=== PATIENT | male | born 1950 | race Caucasian/White ===

== ENCOUNTER 2017-08-29 17:30 | Emergency (ER) | payer SELFPAY ==
[~2017-08-29] VITALS: Ht 175.3 cm; Wt 97.0 kg
[~2017-08-29 17:30] MED LIST: HYDR-3513 PO; SULF1TAB48 PO
[2017-08-29] MEDS ORDERED: SODIUM CHLORIDE 0.9% 1,000 ML IV ONE (18:22)
[2017-08-29] MEDS ORDERED: KETOROLAC 30MG/ML VIAL IV STA (18:22)
[2017-08-29 18:59] LABS: CLARITY URINE TURBID (CLEAR); COLOR URINE DARK YELLOW (YELLOW); GLUCOSE URINE NEGATIVE (NEGATIVE); KETONES URINE NEGATIVE (NEGATIVE); LEUKOCYTE ESTERASE URINE 3+ (NEGATIVE); NITRITE URINE NEGATIVE (NEGATIVE); OCCULT BLOOD URINE TRACE (NEGATIVE); PH URINE 7.5 (4.5-8.0); PROTEIN URINE NEGATIVE (NEGATIVE); SPECIFIC GRAVITY URINE 1.021 (1.005-1.030); UROBILINOGEN URINE >8.0 E.U./dL (0.2-1.0)
[2017-08-29 19:00] LABS: BASOPHILS % 0.7 % (0.0-2.0); EOSINOPHILS % 4.2 % (0.0-5.0); HEMOGLOBIN. 14.1 g/dL (14.0-18.0); LYMPHOCYTES % 20.8 % (20.0-50.0); MEAN CORPUSCULAR HEMOGLOBIN 32.4 pg (28.0-32.0); MEAN CORPUSCULAR VOLUME 94.2 fL (80.0-94.0); MEAN PLATELET VOLUME 7.7 fl (7.4-10.4); MONOCYTES % 12.9 % (2.0-8.0); NEUTROPHILS % 61.4 % (40.0-76.0); PLATELET 91 x1000/uL (130-400); RED BLOOD CELL COUNT 4.35 mill/uL (4.7-6.1); RED CELL DISTRIBUTION WIDTH 14.3 % (11.6-14.6)
[2017-08-29 19:07] LABS: INR 1.2; PROTHROMBIN TIME 12.1 sec (9.4-11.6)
[2017-08-29 19:16] LABS: CARBON DIOXIDE 27 mEq/L (21-32); CHLORIDE 105 mEq/L (98-107)
[2017-08-29] MEDS ORDERED: LEVOFLOXACIN 750MG PREMIX 150 ML IV ONE (19:30)
[2017-08-29 21:45] VITALS: BP 126/75
== END 2017-08-29 22:02 | disposition home or self-care (01) ==
LOC: ER 17:30
DX: N49.2 Inflammatory disorders of scrotum (principal); L03.818 Cellulitis of other sites; N30.00 Acute cystitis without hematuria
CPT/HCPCS: 36415; 80053; 81001; 83605; 85025; 85610; 87040; 96365; 96366; 96375; 99285; J1885; J1956; J7030; Z7610

== ENCOUNTER 2018-09-26 11:31 | Inpatient (IN) | payer MEDICAID ==
[~2018-09-26] VITALS: Ht 175.3 cm; Wt 117.7 kg
[2018-09-26] MEDS ORDERED: SODIUM CHLORIDE 0.9% 1,000 ML IV ONE (11:44)
[2018-09-26 12:29] LABS: BASOPHILS % 0.4 % (0.0-2.0); EOSINOPHILS % 4.1 % (0.0-5.0); HEMATOCRIT. 42.3 % (42.0-52.0); HEMOGLOBIN. 14.7 g/dL (14.0-18.0); LYMPHOCYTES % 34.1 % (20.0-50.0); MEAN PLATELET VOLUME 8.6 fl (7.4-10.4); MONOCYTES % 11.6 % (2.0-8.0); NEUTROPHILS % 49.8 % (40.0-76.0); PLATELET 58 x1000/uL (130-400); RED BLOOD CELL COUNT 4.31 mill/uL (4.7-6.1); RED CELL DISTRIBUTION WIDTH 15.5 % (11.6-14.6)
[2018-09-26 12:38] LABS: INR 1.3; PROTHROMBIN TIME 12.6 sec (9.1-11.1)
[2018-09-26 12:40] LABS: CHLORIDE 107 mEq/L (98-107)
[2018-09-26 13:20] LABS: CLARITY URINE CLEAR (CLEAR); COLOR URINE DARK YELLOW (YELLOW); KETONES URINE NEGATIVE (NEGATIVE); LEUKOCYTE ESTERASE URINE TRACE (NEGATIVE); NITRITE URINE NEGATIVE (NEGATIVE); OCCULT BLOOD URINE NEGATIVE (NEGATIVE); PROTEIN URINE NEGATIVE (NEGATIVE); SPECIFIC GRAVITY URINE 1.018 (1.005-1.030); UROBILINOGEN URINE >8.0 E.U./dL (0.2-1.0)
[2018-09-26 15:00] LABS: AMMONIA 165 uMol/L (<32)
[2018-09-26] MEDS ORDERED: LACTULOSE 20G/30ML UDC PO ONE (15:30)
[2018-09-26] MEDS ORDERED: ASPIRIN 81MG TABLET PO ONE (15:30)
[2018-09-26 22:45] VITALS: BP 123/72
[2018-09-26 23:00] VITALS: BP 123/72
[2018-09-27 04:00] VITALS: BP 132/75
[2018-09-27] MEDS ORDERED: ONDANSETRON HCL 4MG/2ML INJ IV PRN (06:30)
[2018-09-27] MEDS ORDERED: ACETAMINOPHEN 325MG TABLET PO PRN (06:30)
[2018-09-27] MEDS ORDERED: CLONIDINE 0.1MG TABLET PO PRN (06:30)
[2018-09-27 08:00] VITALS: BP 110/60
[2018-09-27] MEDS: AMLODIPINE 10MG TABLET PO SCH (08:56)
[2018-09-27] MEDS: LACTULOSE 20G/30ML UDC PO SCH ×5 (08:56→22:22)
[2018-09-27 09:07] LABS: AMMONIA 162 uMol/L (<32)
[2018-09-27 12:00] VITALS: BP 110/60
[2018-09-27 16:00] VITALS: BP 124/68
[2018-09-27 20:00] VITALS: BP 116/65
[2018-09-28] VITALS: BP 114/61
[2018-09-28 04:00] VITALS: BP 121/71
[2018-09-28] MEDS: LACTULOSE 20G/30ML UDC PO SCH ×3 (04:57→22:56)
[2018-09-28 06:20] LABS: AMMONIA 162 uMol/L (<32)
[2018-09-28 06:30] LABS: BASOPHILS % 0.5 % (0.0-2.0); HEMATOCRIT. 40.1 % (42.0-52.0); HEMOGLOBIN. 13.9 g/dL (14.0-18.0); LYMPHOCYTES % 32.7 % (20.0-50.0); MEAN CORPUSCULAR VOLUME 97.9 fL (80.0-94.0); MEAN PLATELET VOLUME 8.6 fl (7.4-10.4); MONOCYTES % 12.9 % (2.0-8.0); NEUTROPHILS % 49.9 % (40.0-76.0); RED BLOOD CELL COUNT 4.09 mill/uL (4.7-6.1); RED CELL DISTRIBUTION WIDTH 15.3 % (11.6-14.6)
[2018-09-28 06:34] LABS: CHLORIDE 106 mEq/L (98-107)
[2018-09-28 08:00] VITALS: BP 122/65
[2018-09-28 08:15] LABS: PLATELET 50 x1000/uL (130-400)
[2018-09-28 08:23] LABS: PLATELET ESTIMATE MARKEDLY DECREASED
[2018-09-28] MEDS: AMLODIPINE 10MG TABLET PO SCH (08:33)
[2018-09-28 12:20] VITALS: BP 102/65
[2018-09-28 16:00] VITALS: BP 106/61
[2018-09-28 20:00] VITALS: BP 106/54
[2018-09-29] VITALS: BP 112/58
[2018-09-29 04:00] VITALS: BP 128/79
[2018-09-29] MEDS: LACTULOSE 20G/30ML UDC PO SCH ×3 (06:19→21:04)
[2018-09-29 07:31] LABS: BASOPHILS % 0.5 % (0.0-2.0); HEMATOCRIT. 39.7 % (42.0-52.0); HEMOGLOBIN. 13.8 g/dL (14.0-18.0); MEAN CORPUSCULAR HEMOGLOBIN 34.1 pg (28.0-32.0); MEAN CORPUSCULAR VOLUME 97.7 fL (80.0-94.0); MEAN PLATELET VOLUME 8.7 fl (7.4-10.4); MONOCYTES % 13.4 % (2.0-8.0); NEUTROPHILS % 51.1 % (40.0-76.0); PLATELET 54 x1000/uL (130-400); RED BLOOD CELL COUNT 4.06 mill/uL (4.7-6.1); RED CELL DISTRIBUTION WIDTH 15.1 % (11.6-14.6)
[2018-09-29 08:00] VITALS: BP 119/65
[2018-09-29 08:00] LABS: AMMONIA 157 uMol/L (<32)
[2018-09-29 08:37] LABS: CHLORIDE 108 mEq/L (98-107)
[2018-09-29] MEDS: AMLODIPINE 10MG TABLET PO SCH ×2 (08:57→09:48)
[2018-09-29 12:00] VITALS: BP 108/61
[2018-09-29 16:29] VITALS: BP 101/59
[2018-09-29 20:27] VITALS: BP 117/66
[2018-09-30 00:49] VITALS: BP 123/60
[2018-09-30 04:00] VITALS: BP 108/62
[2018-09-30] MEDS: LACTULOSE 20G/30ML UDC PO SCH (05:27)
[2018-09-30 08:30] VITALS: BP 121/67
[2018-09-30] MEDS: AMLODIPINE 10MG TABLET PO SCH (09:11)
[2018-09-30 09:35] LABS: AMMONIA 86 uMol/L (<32)
[2018-09-30 11:31] VITALS: BP 123/60
== END 2018-09-30 14:35 | disposition home or self-care (01) | DRG 279 ==
LOC: ER 11:51 → 8WST 15:44 → EDBEDREQTM 15:47 → EDBEDREQ 15:47 → ENRESERV 21:40
PROVIDERS: ADMIT Hospitalist; ATTEND Hospitalist
DX: K72.00 Acute and subacute hepatic failure without coma (principal); D69.6 Thrombocytopenia, unspecified; K76.9 Liver disease, unspecified; I10 Essential (primary) hypertension; Z82.49 Family history of ischemic heart disease and other diseases of the circulatory system; Z88.0 Allergy status to penicillin; Z79.899 Other long term (current) drug therapy; E44.1 Mild protein-calorie malnutrition
CPT/HCPCS: 36415; 51702; 71045; 82140; 84484; 93005; 93970; 96360; 96361; 97162; 99291; J7030; A4315

== ENCOUNTER 2018-10-22 19:45 | Inpatient (IN) | payer OTHER, MEDICAID ==
[~2018-10-22] VITALS: Ht 172.7 cm; Wt 131.6 kg
[2018-10-23 01:49] LABS: BASOPHILS % 0.3 % (0.0-2.0); EOSINOPHILS % 3.8 % (0.0-5.0); HEMATOCRIT. 40.3 % (42.0-52.0); LYMPHOCYTES % 31.4 % (20.0-50.0); MEAN CORPUSCULAR HEMOGLOBIN 34.1 pg (28.0-32.0); MEAN CORPUSCULAR VOLUME 98.4 fL (80.0-94.0); MEAN PLATELET VOLUME 8.1 fl (7.4-10.4); MONOCYTES % 12.6 % (2.0-8.0); NEUTROPHILS % 51.9 % (40.0-76.0); PLATELET 59 x1000/uL (130-400); RED BLOOD CELL COUNT 4.09 mill/uL (4.7-6.1); RED CELL DISTRIBUTION WIDTH 15.9 % (11.6-14.6)
[2018-10-23 01:57] LABS: CHLORIDE 109 mEq/L (98-107)
[2018-10-23 01:59] LABS: INR 1.3; PARTIAL THROMBOPLASTIN TIME 32.2 sec (23.4-31.0); PROTHROMBIN TIME 12.7 sec (9.1-11.1)
[2018-10-23 02:02] LABS: ETHANOL BLOOD < 10 mg/dL
[2018-10-23] MEDS ORDERED: LACTULOSE 20G/30ML UDC PO ONE (03:45)
[2018-10-23] MEDS ORDERED: KETOROLAC 15MG/ML VIAL IV PRN (09:45)
[2018-10-23] MEDS ORDERED: MAGNESIUM/ALUMINUM HYDROXIDE/SIMETHICONE 30ML UDC PO PRN (09:45)
[2018-10-23] MEDS ORDERED: ENOXAPARIN 40MG/0.4ML SYR SUBCUT SCH (09:45)
[2018-10-23] MEDS ORDERED: DOCUSATE SODIUM 100MG CAPSULE PO PRN (09:45)
[2018-10-23] MEDS ORDERED: NA PHOS,M-B/NA PHOS,DI-BA ENEMA 118ML PR PRN (09:45)
[2018-10-23] MEDS ORDERED: ACETAMINOPHEN 325MG TABLET PO PRN (09:45)
[2018-10-23] MEDS ORDERED: NITROGLYCERIN 0.4MG TABLET SL SL PRN (09:45)
[2018-10-23] MEDS ORDERED: ONDANSETRON HCL 4MG/2ML INJ IV PRN (09:45)
[2018-10-23] MEDS ORDERED: IPRATROPIUM/ALBUTEROL 0.5-3(2.5)MG/3ML NEB INH PRN (09:45)
[2018-10-23] MEDS ORDERED: CLONIDINE 0.1MG TABLET PO PRN (09:45)
[2018-10-23 09:59] LABS: CLARITY URINE CLOUDY (CLEAR); COLOR URINE DARK YELLOW (YELLOW); KETONES URINE NEGATIVE (NEGATIVE); LEUKOCYTE ESTERASE URINE 2+ (NEGATIVE); NITRITE URINE NEGATIVE (NEGATIVE); OCCULT BLOOD URINE 1+ (NEGATIVE); PH URINE 5.5 (4.5-8.0); PROTEIN URINE NEGATIVE (NEGATIVE); SPECIFIC GRAVITY URINE 1.023 (1.005-1.030)
[2018-10-23 12:02] LABS: *AMPHETAMINES SCREEN URINE NEGATIVE (NEGATIVE); *BARBITURATES SCREEN URINE NEGATIVE (NEGATIVE)
[2018-10-23 12:03] LABS: *BENZODIAZEPINES SCREEN URINE NEGATIVE (NEGATIVE); *COCAINE SCREEN URINE NEGATIVE (NEGATIVE); METHADONE URINE SCREEN NEGATIVE (NEGATIVE); OPIATES URINE SCREEN NEGATIVE (NEGATIVE)
[2018-10-23 12:04] LABS: CANNABINOID URINE SCREEN NEGATIVE (NEGATIVE); PHENCYCLIDINE URINE SCREEN NEGATIVE (NEGATIVE)
[2018-10-23 15:30] VITALS: BP 142/76
[2018-10-23 16:00] VITALS: BP 142/76
[2018-10-23] MEDS: LACTULOSE 20G/30ML UDC PO SCH ×2 (16:57→22:03)
[2018-10-23] MEDS ORDERED: LEVOFLOXACIN 500MG PREMIX 100 ML IV SCH (18:00)
[2018-10-23 20:00] VITALS: BP 129/69
[2018-10-23 20:28] LABS: CREATINE KINASE 83 IU/L (39-308)
[2018-10-23 20:29] LABS: CREATINE KINASE MB FRACTION < 1.0 ng/mL (0.5-3.6)
[2018-10-23] MEDS: RIFAXIMIN 550 MG TABLET PO SCH (22:03)
[2018-10-24] VITALS: BP 101/56
[2018-10-24] MEDS: LACTULOSE 20G/30ML UDC PO SCH ×4 (00:27→13:01)
[2018-10-24 04:00] VITALS: BP 121/64
[2018-10-24 04:38] LABS: CREATINE KINASE 72 IU/L (39-308)
[2018-10-24 06:22] LABS: CREATINE KINASE MB FRACTION < 1.0 ng/mL (0.5-3.6)
[2018-10-24 08:00] VITALS: BP 118/74
[2018-10-24] MEDS: RIFAXIMIN 550 MG TABLET PO SCH (08:36)
[2018-10-24] MEDS ORDERED: PANTOPRAZOLE SODIUM 40 MG/VIAL IV SCH (09:00)
[2018-10-24 10:06] VITALS: BP 124/72
[2018-10-24 12:00] VITALS: BP 114/64
== END 2018-10-24 14:33 | disposition home or self-care (01) | DRG 279 ==
LOC: ER 19:48 → 6WST 10-23 03:52 → EDBEDREQTM 10-23 03:54 → EDBEDREQ 10-23 03:54 → ENRESERV 10-23 14:29
PROVIDERS: ADMIT Internal Medicine; ATTEND Internal Medicine
DX: K72.90 Hepatic failure, unspecified without coma (principal); E44.0 Moderate protein-calorie malnutrition; D61.818 Other pancytopenia; E83.51 Hypocalcemia; Z68.41 Body mass index [BMI] 40.0-44.9, adult; D69.59 Other secondary thrombocytopenia; E83.52 Hypercalcemia; F17.210 Nicotine dependence, cigarettes, uncomplicated; K74.60 Unspecified cirrhosis of liver; N39.0 Urinary tract infection, site not specified; Z88.0 Allergy status to penicillin; Z79.899 Other long term (current) drug therapy; R55 Syncope and collapse
CPT/HCPCS: 36415; 71045; 80305; 80307; 80329; 82140; 82550; 82553; 83036; 83880; 84484; 93005; 93970; 99285; C9113; G0482; J1956; J7050

== ENCOUNTER 2019-02-03 15:43 | Inpatient (IN) | payer MEDICAID, OTHER ==
[~2019-02-03] VITALS: Ht 182.9 cm; Wt 109.8 kg
[2019-02-03] MEDS ORDERED: MULTIVITAMINS,THER W-MINERALS TABLET PO SCH (16:30)
[2019-02-03] MEDS: FOLIC ACID 1MG TABLET PO SCH ×2 (16:30→16:37)
[2019-02-03 17:11] LABS: CHLORIDE 108 mEq/L (98-107)
[2019-02-03 17:16] LABS: ETHANOL BLOOD < 10 mg/dL
[2019-02-03 17:20] LABS: BASOPHILS % 0.4 % (0.0-2.0); EOSINOPHILS % 3.8 % (0.0-5.0); HEMATOCRIT. 40.7 % (42.0-52.0); HEMOGLOBIN. 13.9 g/dL (14.0-18.0); LYMPHOCYTES % 26.1 % (20.0-50.0); MEAN CORPUSCULAR HEMOGLOBIN 33.8 pg (28.0-32.0); MEAN CORPUSCULAR VOLUME 98.7 fL (80.0-94.0); MEAN PLATELET VOLUME 9.2 fl (7.4-10.4); MONOCYTES % 12.6 % (2.0-8.0); NEUTROPHILS % 57.1 % (40.0-76.0); RED BLOOD CELL COUNT 4.12 mill/uL (4.7-6.1); RED CELL DISTRIBUTION WIDTH 15.5 % (11.6-14.6)
[2019-02-03] MEDS ORDERED: LACTULOSE 20G/30ML UDC PO NR (18:00)
[2019-02-03] MEDS ORDERED: ONDANSETRON HCL 4MG/2ML INJ IV PRN (18:45)
[2019-02-03] MEDS ORDERED: IPRATROPIUM/ALBUTEROL 0.5-3(2.5)MG/3ML NEB INH PRN (18:45)
[2019-02-03] MEDS ORDERED: KETOROLAC 15MG/ML VIAL IV PRN (18:45)
[2019-02-03] MEDS ORDERED: MAGNESIUM/ALUMINUM HYDROXIDE/SIMETHICONE 30ML UDC PO PRN (18:45)
[2019-02-03] MEDS ORDERED: ACETAMINOPHEN 325MG TABLET PO PRN (18:45)
[2019-02-03] MEDS ORDERED: DOCUSATE SODIUM 100MG CAPSULE PO PRN (18:45)
[2019-02-03] MEDS ORDERED: NITROGLYCERIN 0.4MG TABLET SL SL PRN (18:45)
[2019-02-03] MEDS ORDERED: CLONIDINE 0.1MG TABLET PO PRN (18:45)
[2019-02-03 19:11] LABS: TOTAL IRON BINDING CAPACITY 229 ug/dL (250-450)
[2019-02-03 19:31] LABS: FOLIC ACID (FOLATE) SERUM 12.5 ng/mL (>5.38)
[2019-02-03] MEDS: DILTIAZEM HCL 60MG TABLET PO SCH (23:52)
[2019-02-04] VITALS: BP 122/70
[2019-02-04] MEDS: RIFAXIMIN 550 MG TABLET PO SCH ×2 (01:36→09:44)
[2019-02-04] MEDS: LACTULOSE 20G/30ML UDC PO SCH ×3 (01:36→09:44)
[2019-02-04 04:00] VITALS: BP 132/61
[2019-02-04] MEDS: DILTIAZEM HCL 60MG TABLET PO SCH (05:41)
[2019-02-04 08:00] VITALS: BP 143/75
[2019-02-04] MEDS ORDERED: PANTOPRAZOLE SODIUM 40 MG/VIAL IV SCH (09:00)
[2019-02-04] MEDS ORDERED: PROPRANOLOL HCL 10MG TABLET PO SCH (09:00)
[2019-02-04 12:00] VITALS: BP 125/66
[2019-02-04 15:22] VITALS: BP 150/81
[2019-02-04 16:00] VITALS: BP 150/81
[2019-02-07 06:22] LABS: PLATELET 45 x1000/uL (130-400)
== END 2019-02-04 16:54 | disposition home or self-care (01) | DRG 279 ==
LOC: ER 15:43 → 7WST 18:30 → ENRESERV 21:44
PROVIDERS: ADMIT Internal Medicine; ATTEND Internal Medicine
DX: K72.90 Hepatic failure, unspecified without coma (principal); D61.818 Other pancytopenia; E44.0 Moderate protein-calorie malnutrition; F10.20 Alcohol dependence, uncomplicated; I10 Essential (primary) hypertension; Z88.0 Allergy status to penicillin; Z68.32 Body mass index [BMI] 32.0-32.9, adult
CPT/HCPCS: 36415; 71045; 80320; 82140; 82607; 82746; 83036; 83540; 83550; 93005; 93970; 96365; 96366; 96372; 96375; 99285; G0480

== ENCOUNTER 2019-05-29 15:45 | Inpatient (IN) | payer MEDICAID ==
[~2019-05-29] VITALS: Ht 177.8 cm; Wt 84.8 kg
[2019-05-29] MEDS ORDERED: ONDANSETRON HCL 4MG/2ML INJ IV STA (16:49)
[2019-05-29 17:28] LABS: CHLORIDE 109 mEq/L (98-107)
[2019-05-29 17:29] LABS: BASOPHILS % 0.5 % (0.0-2.0); EOSINOPHILS % 3.7 % (0.0-5.0); HEMATOCRIT. 39.6 % (42.0-52.0); HEMOGLOBIN. 13.8 g/dL (14.0-18.0); LYMPHOCYTES % 33.4 % (20.0-50.0); MEAN CORPUSCULAR HEMOGLOBIN 34.3 pg (28.0-32.0); MEAN PLATELET VOLUME 8.2 fl (7.4-10.4); MONOCYTES % 13.8 % (2.0-8.0); NEUTROPHILS % 48.6 % (40.0-76.0); PLATELET 64 x1000/uL (130-400); RED BLOOD CELL COUNT 4.04 mill/uL (4.7-6.1); RED CELL DISTRIBUTION WIDTH 16.2 % (11.6-14.6)
[2019-05-29 17:31] LABS: INR 1.4; PROTHROMBIN TIME 13.8 sec (9.6-11.0)
[2019-05-29 17:32] LABS: ETHANOL BLOOD < 10 mg/dL
[2019-05-29] MEDS ORDERED: LACTULOSE 20G/30ML UDC PO NR (17:45)
[2019-05-29 20:38] LABS: CLARITY URINE CLEAR (CLEAR); COLOR URINE DARK YELLOW (YELLOW); KETONES URINE NEGATIVE (NEGATIVE); LEUKOCYTE ESTERASE URINE 2+ (NEGATIVE); NITRITE URINE NEGATIVE (NEGATIVE); OCCULT BLOOD URINE NEGATIVE (NEGATIVE); PROTEIN URINE NEGATIVE (NEGATIVE); SPECIFIC GRAVITY URINE 1.014 (1.005-1.030)
[2019-05-29 20:56] LABS: *BARBITURATES SCREEN URINE NEGATIVE (NEGATIVE)
[2019-05-29 20:57] LABS: *AMPHETAMINES SCREEN URINE NEGATIVE (NEGATIVE); *BENZODIAZEPINES SCREEN URINE NEGATIVE (NEGATIVE); *COCAINE SCREEN URINE NEGATIVE (NEGATIVE); CANNABINOID URINE SCREEN NEGATIVE (NEGATIVE); METHADONE URINE SCREEN NEGATIVE (NEGATIVE); OPIATES URINE SCREEN NEGATIVE (NEGATIVE); PHENCYCLIDINE URINE SCREEN NEGATIVE (NEGATIVE)
[2019-05-29] MEDS ORDERED: CLONIDINE 0.1MG TABLET PO PRN (22:15)
[2019-05-29] MEDS ORDERED: NA PHOS,M-B/NA PHOS,DI-BA ENEMA 118ML PR PRN (22:15)
[2019-05-29] MEDS ORDERED: GUAIFENESIN 200MG/10ML SUGAR FREE UDC PO PRN (22:15)
[2019-05-29] MEDS ORDERED: DOCUSATE SODIUM 100MG CAPSULE PO PRN (22:15)
[2019-05-29] MEDS ORDERED: ACETAMINOPHEN 325MG TABLET PO PRN (22:15)
[2019-05-29] MEDS ORDERED: ONDANSETRON HCL 4MG/2ML INJ IV PRN (22:15)
[2019-05-29] MEDS ORDERED: HYDROCODONE/ACETAMINOPHEN 5/325MG TABLET PO PRN (22:15)
[2019-05-29] MEDS ORDERED: MAGNESIUM/ALUMINUM HYDROXIDE/SIMETHICONE 30ML UDC PO PRN (22:15)
[2019-05-30] VITALS (7 sets, daily range): BP systolic 99–126; BP diastolic 63–72
[2019-05-30 06:17] LABS: HEMATOCRIT. 35.5 % (42.0-52.0); HEMOGLOBIN. 12.5 g/dL (14.0-18.0); MEAN CORPUSCULAR HEMOGLOBIN 34.3 pg (28.0-32.0); MEAN PLATELET VOLUME 8.2 fl (7.4-10.4); PLATELET 52 x1000/uL (130-400); RED BLOOD CELL COUNT 3.63 mill/uL (4.7-6.1); RED CELL DISTRIBUTION WIDTH 15.7 % (11.6-14.6)
[2019-05-30 06:24] LABS: CHLORIDE 109 mEq/L (98-107)
[2019-05-30] MEDS: AMLODIPINE 10MG TABLET PO SCH (09:49)
[2019-05-30] MEDS: LACTULOSE 20G/30ML UDC PO SCH ×2 (14:04→21:21)
[2019-05-30 17:26] LABS: PLATELET ESTIMATE MARKEDLY DECREASED
[2019-05-31] VITALS: BP 122/64
[2019-05-31 04:00] VITALS: BP 127/46
[2019-05-31] MEDS: LACTULOSE 20G/30ML UDC PO SCH (05:20)
[2019-05-31 08:00] VITALS: BP 105/68
[2019-05-31] MEDS: AMLODIPINE 10MG TABLET PO SCH (09:00)
[2019-05-31 12:00] VITALS: BP 102/57
== END 2019-05-31 12:47 | disposition home or self-care (01) | DRG 279 ==
LOC: ER 15:45 → 7WST 18:11 → EDBEDREQ 18:21 → ENRESERV 20:21
PROVIDERS: ADMIT Hospitalist; ATTEND Hospitalist
DX: K72.90 Hepatic failure, unspecified without coma (principal); D61.818 Other pancytopenia; F10.10 Alcohol abuse, uncomplicated; K70.9 Alcoholic liver disease, unspecified; R53.1 Weakness; Z88.0 Allergy status to penicillin
CPT/HCPCS: 36415; 80305; 80320; 82140; 84484; 93005; 93970; 96374; 97162; 99285; J2405; G0480

== ENCOUNTER 2019-07-26 11:30 | Inpatient (IN) | payer OTHER, MEDICAID ==
[~2019-07-26] VITALS: Ht 167.6 cm; Wt 101.2 kg
[2019-07-26] MEDS ORDERED: SODIUM CHLORIDE 0.9% 1,000 ML IV ONE (11:59)
[2019-07-26] MEDS ORDERED: POLYMYXIN B SULFATE/TMP 10ML BOTTLE BOTHEYE STA (11:59)
[2019-07-26 12:17] LABS: EOSINOPHILS % 4.2 % (0.0-5.0); HEMATOCRIT. 36.4 % (42.0-52.0); HEMOGLOBIN. 12.7 g/dL (14.0-18.0); LYMPHOCYTES % 38.4 % (20.0-50.0); MEAN CORPUSCULAR HEMOGLOBIN 34.9 pg (28.0-32.0); MEAN CORPUSCULAR VOLUME 99.8 fL (80.0-94.0); MEAN PLATELET VOLUME 9.2 fl (7.4-10.4); MONOCYTES % 13.1 % (2.0-8.0); NEUTROPHILS % 43.3 % (40.0-76.0); RED BLOOD CELL COUNT 3.65 mill/uL (4.7-6.1); RED CELL DISTRIBUTION WIDTH 16.1 % (11.6-14.6)
[2019-07-26 12:21] LABS: CHLORIDE 111 mEq/L (98-107)
[2019-07-26 12:23] LABS: INR 1.5; PARTIAL THROMBOPLASTIN TIME 34.4 sec (23.4-31.0)
[2019-07-26 12:25] LABS: ETHANOL BLOOD < 10 mg/dL
[2019-07-26] MEDS ORDERED: LORAZEPAM 2MG/ML CPJ IV ONE (14:30)
[2019-07-26] MEDS ORDERED: LACTULOSE 20G/30ML UDC PO ONE (14:30)
[2019-07-26] MEDS ORDERED: ASPIRIN 325MG EC TABLET PO ONE (14:30)
[2019-07-26] MEDS ORDERED: ONDANSETRON HCL 4MG/2ML INJ IV PRN (17:15)
[2019-07-26] MEDS ORDERED: LORAZEPAM 2MG/ML CPJ IV PRN (17:15)
[2019-07-26 17:30] VITALS: BP 121/79
[2019-07-26] MEDS: DEXT 5%/0.45% NACL 1000ML 1,000 ML IV SCH (19:05)
[2019-07-26 20:00] VITALS: BP 122/80
[2019-07-26] MEDS: LACTULOSE 20G/30ML UDC PO SCH (21:09)
[2019-07-26 22:00] VITALS: BP 108/60
[2019-07-27] VITALS (12 sets, daily range): BP systolic 91–128; BP diastolic 56–89
[2019-07-27] MEDS: DEXT 5%/0.45% NACL 1000ML 1,000 ML IV SCH ×2 (05:06→21:16)
[2019-07-27] MEDS: LACTULOSE 20G/30ML UDC PO SCH ×3 (05:06→21:16)
[2019-07-27 07:29] LABS: CHLORIDE 110 mEq/L (98-107)
[2019-07-27 07:31] LABS: BASOPHILS % 0.4 % (0.0-2.0); EOSINOPHILS % 3.6 % (0.0-5.0); HEMATOCRIT. 33.7 % (42.0-52.0); HEMOGLOBIN. 11.8 g/dL (14.0-18.0); LYMPHOCYTES % 26.1 % (20.0-50.0); MEAN CORPUSCULAR HEMOGLOBIN 34.6 pg (28.0-32.0); MEAN PLATELET VOLUME 8.2 fl (7.4-10.4); MONOCYTES % 13.5 % (2.0-8.0); NEUTROPHILS % 56.4 % (40.0-76.0); RED CELL DISTRIBUTION WIDTH 15.6 % (11.6-14.6)
[2019-07-27 07:35] LABS: PLATELET 43 x1000/uL (130-400)
[2019-07-27 10:53] LABS: PLATELET ESTIMATE MARKEDLY DECREASED
[2019-07-27 12:10] LABS: PLATELET 79 x1000/uL (130-400)
[2019-07-28] VITALS (9 sets, daily range): BP systolic 98–144; BP diastolic 56–74
[2019-07-28] MEDS: LACTULOSE 20G/30ML UDC PO SCH ×3 (06:53→23:22)
[2019-07-28] MEDS: DEXT 5%/0.45% NACL 1000ML 1,000 ML IV SCH (09:12)
[2019-07-29] VITALS: BP 128/69
[2019-07-29 05:21] VITALS: BP 138/84
[2019-07-29] MEDS: LACTULOSE 20G/30ML UDC PO SCH ×3 (05:39→21:31)
[2019-07-29] MEDS: DEXT 5%/0.45% NACL 1000ML 1,000 ML IV SCH (11:57)
[2019-07-29] MEDS: CHLORDIAZEPOXIDE 25MG CAPSULE PO SCH ×2 (13:58→21:30)
[2019-07-29 20:00] VITALS: BP 108/60
[2019-07-29] MEDS: POLYMYXIN B SULFATE/TMP 10ML BOTTLE BOTHEYE SCH (21:31)
[2019-07-30] VITALS: BP 98/53
[2019-07-30 04:00] VITALS: BP 112/59
[2019-07-30] MEDS: POLYMYXIN B SULFATE/TMP 10ML BOTTLE BOTHEYE SCH (04:58)
[2019-07-30] MEDS: CHLORDIAZEPOXIDE 25MG CAPSULE PO SCH ×3 (05:54→23:26)
[2019-07-30] MEDS: LACTULOSE 20G/30ML UDC PO SCH ×3 (05:56→23:27)
[2019-07-30] MEDS: DEXT 5%/0.45% NACL 1000ML 1,000 ML IV SCH ×2 (05:57→14:56)
[2019-07-30 08:00] VITALS: BP 102/70
[2019-07-30 09:35] LABS: BASOPHILS % 0.5 % (0.0-2.0); EOSINOPHILS % 5.8 % (0.0-5.0); HEMATOCRIT. 33.4 % (42.0-52.0); HEMOGLOBIN. 11.8 g/dL (14.0-18.0); LYMPHOCYTES % 35.1 % (20.0-50.0); MEAN CORPUSCULAR HEMOGLOBIN 34.8 pg (28.0-32.0); MEAN PLATELET VOLUME 7.8 fl (7.4-10.4); MONOCYTES % 12.7 % (2.0-8.0); NEUTROPHILS % 45.9 % (40.0-76.0); RED BLOOD CELL COUNT 3.38 mill/uL (4.7-6.1); RED CELL DISTRIBUTION WIDTH 15.4 % (11.6-14.6)
[2019-07-30 09:41] LABS: CHLORIDE 110 mEq/L (98-107)
[2019-07-30 10:41] LABS: PLATELET 47 x1000/uL (130-400)
[2019-07-30 12:00] VITALS: BP 92/65
[2019-07-30 16:00] VITALS: BP 103/67
[2019-07-30 20:00] VITALS: BP 115/73
[2019-07-31] VITALS: BP 94/57
[2019-07-31] MEDS: DEXT 5%/0.45% NACL 1000ML 1,000 ML IV SCH ×2 (03:43→17:25)
[2019-07-31 04:00] VITALS: BP 106/61
[2019-07-31] MEDS: LACTULOSE 20G/30ML UDC PO SCH ×3 (06:36→22:05)
[2019-07-31] MEDS: CHLORDIAZEPOXIDE 25MG CAPSULE PO SCH ×3 (06:36→22:05)
[2019-07-31 08:00] VITALS: BP 110/62
[2019-07-31 16:00] VITALS: BP 129/77
[2019-07-31 20:00] VITALS: BP 90/49
[2019-08-01] VITALS: BP 117/66
[2019-08-01 04:00] VITALS: BP 118/79
[2019-08-01] MEDS: CHLORDIAZEPOXIDE 25MG CAPSULE PO SCH ×3 (06:39→21:02)
[2019-08-01] MEDS: LACTULOSE 20G/30ML UDC PO SCH ×3 (06:39→21:02)
[2019-08-01] MEDS: DEXT 5%/0.45% NACL 1000ML 1,000 ML IV SCH (06:40)
[2019-08-01 07:06] LABS: CHLORIDE 107 mEq/L (98-107)
[2019-08-01 07:19] LABS: HEMATOCRIT. 30.8 % (42.0-52.0); MEAN CORPUSCULAR HEMOGLOBIN 35.2 pg (28.0-32.0); MEAN CORPUSCULAR VOLUME 98.4 fL (80.0-94.0); MEAN PLATELET VOLUME 7.9 fl (7.4-10.4); RED BLOOD CELL COUNT 3.13 mill/uL (4.7-6.1); RED CELL DISTRIBUTION WIDTH 15.3 % (11.6-14.6)
[2019-08-01 08:00] VITALS: BP 122/68
[2019-08-01 09:01] LABS: PLATELET 50 x1000/uL (130-400)
[2019-08-01 12:00] VITALS: BP 97/51
[2019-08-01 13:17] LABS: PLATELET ESTIMATE MARKEDLY DECREASED
[2019-08-01 16:00] VITALS: BP 99/57
[2019-08-01 20:00] VITALS: BP 104/64
[2019-08-02] VITALS: BP 105/65
[2019-08-02 04:00] VITALS: BP 109/73
[2019-08-02] MEDS: CHLORDIAZEPOXIDE 25MG CAPSULE PO SCH ×3 (06:21→21:38)
[2019-08-02] MEDS: LACTULOSE 20G/30ML UDC PO SCH ×3 (06:21→21:38)
[2019-08-02 08:00] VITALS: BP 98/57
[2019-08-02 12:00] VITALS: BP 113/65
[2019-08-02 16:00] VITALS: BP 109/64
[2019-08-02 20:00] VITALS: BP 107/51
[2019-08-02] MEDS: DEXT 5%/0.45% NACL 1000ML 1,000 ML IV SCH ×2 (21:39→22:23)
[2019-08-03] VITALS: BP 110/60
[2019-08-03 04:00] VITALS: BP 108/55
[2019-08-03] MEDS: LACTULOSE 20G/30ML UDC PO SCH ×3 (05:18→21:00)
[2019-08-03] MEDS: CHLORDIAZEPOXIDE 25MG CAPSULE PO SCH ×2 (05:18→13:02)
[2019-08-03 08:00] VITALS: BP_SYST 106; BP_SYST 122; BP_DIAS 64; BP_DIAS 74
[2019-08-03 12:00] VITALS: BP 120/62
[2019-08-03 16:00] VITALS: BP 98/65
[2019-08-03 20:00] VITALS: BP 103/63
[2019-08-03] MEDS: RIFAXIMIN 550 MG TABLET PO SCH (20:23)
[2019-08-04] VITALS: BP 108/72
[2019-08-04 04:00] VITALS: BP 105/70
[2019-08-04] MEDS: LACTULOSE 20G/30ML UDC PO SCH ×3 (05:31→21:00)
[2019-08-04] MEDS: DEXT 5%/0.45% NACL 1000ML 1,000 ML IV SCH ×2 (05:31→15:00)
[2019-08-04 05:55] LABS: CHLORIDE 108 mEq/L (98-107)
[2019-08-04 06:12] LABS: BASOPHILS % 0.6 % (0.0-2.0); EOSINOPHILS % 3.7 % (0.0-5.0); HEMATOCRIT. 33.6 % (42.0-52.0); HEMOGLOBIN. 11.7 g/dL (14.0-18.0); LYMPHOCYTES % 28.8 % (20.0-50.0); MEAN CORPUSCULAR HEMOGLOBIN 34.7 pg (28.0-32.0); MEAN CORPUSCULAR VOLUME 99.1 fL (80.0-94.0); MEAN PLATELET VOLUME 7.8 fl (7.4-10.4); MONOCYTES % 12.6 % (2.0-8.0); NEUTROPHILS % 54.3 % (40.0-76.0); PLATELET 58 x1000/uL (130-400); RED BLOOD CELL COUNT 3.39 mill/uL (4.7-6.1); RED CELL DISTRIBUTION WIDTH 16.1 % (11.6-14.6)
[2019-08-04 08:00] VITALS: BP 105/64
[2019-08-04] MEDS: RIFAXIMIN 550 MG TABLET PO SCH ×2 (08:55→20:54)
[2019-08-04 16:00] VITALS: BP 112/67
[2019-08-04 20:00] VITALS: BP 112/67
[2019-08-05] VITALS: BP 124/60
[2019-08-05 04:00] VITALS: BP 109/52
[2019-08-05] MEDS: LACTULOSE 20G/30ML UDC PO SCH ×3 (05:25→21:08)
[2019-08-05] MEDS: RIFAXIMIN 550 MG TABLET PO SCH ×2 (08:22→21:08)
[2019-08-05 09:25] VITALS: BP 129/70
[2019-08-05 12:00] VITALS: BP 115/71
[2019-08-05 16:00] VITALS: BP 116/69
[2019-08-05] MEDS: DEXT 5%/0.45% NACL 1000ML 1,000 ML IV SCH (16:49)
[2019-08-05 20:00] VITALS: BP 103/68
[2019-08-06 04:00] VITALS: BP 110/68
[2019-08-06] MEDS: LACTULOSE 20G/30ML UDC PO SCH ×3 (05:47→21:03)
[2019-08-06 08:34] VITALS: BP 121/70
[2019-08-06] MEDS: RIFAXIMIN 550 MG TABLET PO SCH ×2 (08:57→21:03)
[2019-08-06 12:25] VITALS: BP 109/63
[2019-08-06 16:47] VITALS: BP 116/64
[2019-08-06 20:00] VITALS: BP 101/63
[2019-08-07] VITALS: BP 100/44
[2019-08-07 04:00] VITALS: BP 103/50
[2019-08-07] MEDS: LACTULOSE 20G/30ML UDC PO SCH ×3 (05:25→21:13)
[2019-08-07 06:02] LABS: BASOPHILS % 0.4 % (0.0-2.0); EOSINOPHILS % 5.5 % (0.0-5.0); HEMATOCRIT. 34.6 % (42.0-52.0); HEMOGLOBIN. 12.3 g/dL (14.0-18.0); LYMPHOCYTES % 22.1 % (20.0-50.0); MEAN CORPUSCULAR HEMOGLOBIN 35.4 pg (28.0-32.0); MEAN PLATELET VOLUME 8.2 fl (7.4-10.4); MONOCYTES % 14.9 % (2.0-8.0); NEUTROPHILS % 57.1 % (40.0-76.0); PLATELET 52 x1000/uL (130-400); RED BLOOD CELL COUNT 3.46 mill/uL (4.7-6.1); RED CELL DISTRIBUTION WIDTH 15.2 % (11.6-14.6)
[2019-08-07 08:03] LABS: CHLORIDE 106 mEq/L (98-107)
[2019-08-07 08:05] VITALS: BP 102/63
[2019-08-07] MEDS: RIFAXIMIN 550 MG TABLET PO SCH ×2 (08:34→21:13)
[2019-08-07] MEDS: DEXT 5%/0.45% NACL 1000ML 1,000 ML IV SCH ×2 (09:30→21:15)
[2019-08-07 11:43] VITALS: BP 104/72
[2019-08-07 15:13] VITALS: BP 103/59
[2019-08-07 20:00] VITALS: BP 116/60
[2019-08-08] VITALS: BP 112/60
[2019-08-08 04:00] VITALS: BP 100/60
[2019-08-08] MEDS: LACTULOSE 20G/30ML UDC PO SCH ×3 (06:17→21:28)
[2019-08-08 08:00] VITALS: BP 105/65
[2019-08-08] MEDS: RIFAXIMIN 550 MG TABLET PO SCH ×2 (08:06→21:28)
[2019-08-08] MEDS: DEXT 5%/0.45% NACL 1000ML 1,000 ML IV SCH (11:56)
[2019-08-08 12:00] VITALS: BP 109/73
[2019-08-08 16:00] VITALS: BP 118/72
[2019-08-08 20:00] VITALS: BP 111/69
[2019-08-09] VITALS: BP 99/61
[2019-08-09] MEDS: DEXT 5%/0.45% NACL 1000ML 1,000 ML IV SCH ×2 (02:04→14:28)
[2019-08-09 04:00] VITALS: BP 108/68
[2019-08-09] MEDS: LACTULOSE 20G/30ML UDC PO SCH ×2 (07:56→14:00)
[2019-08-09 08:00] VITALS: BP 105/59
[2019-08-09] MEDS: RIFAXIMIN 550 MG TABLET PO SCH (08:14)
[2019-08-09 12:00] VITALS: BP 105/61
[2019-08-09 16:00] VITALS: BP 108/68
[2019-08-09 18:01] VITALS: BP 108/68
== END 2019-08-09 18:51 | disposition home or self-care (01) | DRG 279 ==
LOC: ER 11:30 → EDBEDREQ 15:43 → ENRESERV 15:55 → 5EST 16:30 → 6EST 07-28 20:28
PROVIDERS: ADMIT Hospitalist; ATTEND Hospitalist
DX: K72.90 Hepatic failure, unspecified without coma (principal); Z78.1 Physical restraint status; K76.9 Liver disease, unspecified; H10.33 Unspecified acute conjunctivitis, bilateral; D72.819 Decreased white blood cell count, unspecified; R25.1 Tremor, unspecified; Z88.0 Allergy status to penicillin
CPT/HCPCS: 36415; 71045; 80320; 82140; 83880; 84484; 93005; 93970; 96374; 96375; 97116; 97162; 97530; 99285; J2060; J7030; J7040; G0480

== ENCOUNTER 2019-08-25 00:53 | Inpatient (IN) | payer MEDICAID, OTHER ==
[~2019-08-25] VITALS: Ht 335.3 cm; Wt 86.2 kg
[2019-08-25] MEDS ORDERED: ONDANSETRON HCL 4MG/2ML INJ IV STA (01:35)
[2019-08-25] MEDS ORDERED: SODIUM CHLORIDE 0.9% 1,000 ML IV ONE ×2 (01:35→05:14)
[2019-08-25 01:54] LABS: BASOPHILS % 0.5 % (0.0-2.0); EOSINOPHILS % 4.8 % (0.0-5.0); HEMATOCRIT. 39.1 % (42.0-52.0); HEMOGLOBIN. 13.7 g/dL (14.0-18.0); LYMPHOCYTES % 39.6 % (20.0-50.0); MEAN CORPUSCULAR HEMOGLOBIN 34.8 pg (28.0-32.0); MEAN CORPUSCULAR VOLUME 99.4 fL (80.0-94.0); MEAN PLATELET VOLUME 8.5 fl (7.4-10.4); MONOCYTES % 10.2 % (2.0-8.0); NEUTROPHILS % 44.9 % (40.0-76.0); PLATELET 52 x1000/uL (130-400); RED BLOOD CELL COUNT 3.93 mill/uL (4.7-6.1); RED CELL DISTRIBUTION WIDTH 15.4 % (11.6-14.6)
[2019-08-25 02:09] LABS: CHLORIDE 106 mEq/L (98-107)
[2019-08-25 03:10] LABS: BG BASE EXCESS 2.5 mmol/L (-2.0-2.0); BG DEOXYHEMOGLOBIN 6.3 % (0.0-5.0); BG FRACTION INSPIRED OXYGEN 21; BG HCO3 ACT 28.2 mmol/L (22.0-26.0); BG METHEMOGLOBIN 0.2 % (0.0-1.5); BG OXYGEN SATURATION 93.6 % (92.0-98.5); BG OXYHEMOGLOBIN 92.5 % (94.0-97.0); BG PCO2 47.8 mmHg (35.0-45.0); BG PH 7.389 (7.350-7.450); BG PO2 66.8 mmHg (75.0-100.0); BG SAMPLE SITE RIGHT RADIAL; BG TOTAL HEMOGLOBIN 13.7 g/dL (12.0-18.0); BG VENT MODE ROOM AIR
[2019-08-25] MEDS ORDERED: LACTULOSE 20G/30ML UDC NG ONE (03:45)
[2019-08-25] MEDS ORDERED: KETOROLAC 15MG/ML VIAL IV ONE (04:15)
[2019-08-25 08:26] LABS: CLARITY URINE CLOUDY (CLEAR); COLOR URINE ORANGE (YELLOW); KETONES URINE TRACE (NEGATIVE); LEUKOCYTE ESTERASE URINE 3+ (NEGATIVE); NITRITE URINE POSITIVE (NEGATIVE); OCCULT BLOOD URINE 1+ (NEGATIVE); PH URINE 5.5 (4.5-8.0); PROTEIN URINE NEGATIVE (NEGATIVE); SPECIFIC GRAVITY URINE 1.029 (1.005-1.030); UROBILINOGEN URINE >=8.0 E.U./dL (0.2-1.0)
[2019-08-25] MEDS ORDERED: NITROGLYCERIN 0.4MG TABLET SL SL PRN (10:00)
[2019-08-25] MEDS ORDERED: GUAIFENESIN 200MG/10ML SUGAR FREE UDC PO PRN (10:00)
[2019-08-25] MEDS ORDERED: CLONIDINE 0.1MG TABLET PO PRN (10:00)
[2019-08-25] MEDS ORDERED: MAGNESIUM/ALUMINUM HYDROXIDE/SIMETHICONE 30ML UDC PO PRN (10:00)
[2019-08-25] MEDS ORDERED: ONDANSETRON HCL 4MG/2ML INJ IV PRN (10:00)
[2019-08-25] MEDS ORDERED: IPRATROPIUM/ALBUTEROL 0.5-3(2.5)MG/3ML NEB HHN PRN (10:00)
[2019-08-25] MEDS ORDERED: DOCUSATE SODIUM 100MG CAPSULE PO PRN (10:00)
[2019-08-25] MEDS ORDERED: ACETAMINOPHEN 325MG TABLET PO PRN (10:00)
[2019-08-25] MEDS: LACTULOSE 20G/30ML UDC PO SCH ×3 (12:00→21:15)
[2019-08-25 16:29] LABS: FOLIC ACID (FOLATE) SERUM 9.9 ng/mL (>5.38)
[2019-08-25] MEDS ORDERED: KETOROLAC 15MG/ML VIAL IV PRN (17:47)
[2019-08-25 18:17] VITALS: BP 119/65
[2019-08-25] MEDS ORDERED: CEFTRIAXONE 1 G PREMIX 50 ML IV SCH (20:00)
[2019-08-25 20:45] VITALS: BP 115/66
[2019-08-25] MEDS: RIFAXIMIN 550 MG TABLET PO SCH (21:13)
[2019-08-25 23:16] LABS: METHADONE URINE SCREEN NEGATIVE (NEGATIVE); OPIATES URINE SCREEN NEGATIVE (NEGATIVE)
[2019-08-25 23:17] LABS: *AMPHETAMINES SCREEN URINE NEGATIVE (NEGATIVE); *BARBITURATES SCREEN URINE NEGATIVE (NEGATIVE); *BENZODIAZEPINES SCREEN URINE PRESUMTIVE POSITIVE (NEGATIVE); *COCAINE SCREEN URINE NEGATIVE (NEGATIVE); CANNABINOID URINE SCREEN NEGATIVE (NEGATIVE); PHENCYCLIDINE URINE SCREEN NEGATIVE (NEGATIVE)
[2019-08-26 00:07] VITALS: BP 117/69
[2019-08-26 04:00] VITALS: BP 99/66
[2019-08-26] MEDS: LACTULOSE 20G/30ML UDC PO SCH ×5 (04:00→21:00)
[2019-08-26 08:00] VITALS: BP 107/61
[2019-08-26] MEDS: RIFAXIMIN 550 MG TABLET PO SCH ×2 (09:29→21:00)
[2019-08-26] MEDS: PANTOPRAZOLE SODIUM 40 MG/VIAL IV SCH (09:29)
[2019-08-26 12:00] VITALS: BP 101/62
[2019-08-26 20:00] VITALS: BP 102/57
[2019-08-26] MEDS: CEFTRIAXONE 1 G PREMIX 50 ML IV SCH (21:58)
[2019-08-27] VITALS: BP 115/65
[2019-08-27] MEDS: LACTULOSE 20G/30ML UDC PO SCH ×6 (01:21→21:29)
[2019-08-27 04:00] VITALS: BP 101/51
[2019-08-27 08:29] VITALS: BP 86/57
[2019-08-27] MEDS: RIFAXIMIN 550 MG TABLET PO SCH ×2 (09:00→21:29)
[2019-08-27] MEDS: PANTOPRAZOLE SODIUM 40 MG/VIAL IV SCH (09:48)
[2019-08-27 12:27] VITALS: BP 83/44
[2019-08-27 16:21] VITALS: BP 96/50
[2019-08-27 20:51] VITALS: BP 110/70
[2019-08-27] MEDS: CEFTRIAXONE 1 G PREMIX 50 ML IV SCH (21:29)
[2019-08-28] VITALS: BP 115/72
[2019-08-28] MEDS: LACTULOSE 20G/30ML UDC PO SCH ×6 (00:28→20:25)
[2019-08-28 04:00] VITALS: BP 131/68
[2019-08-28 08:50] VITALS: BP 104/65
[2019-08-28] MEDS ORDERED: FAMOTIDINE 20MG/2ML VIAL IV SCH (09:00)
[2019-08-28] MEDS: RIFAXIMIN 550 MG TABLET PO SCH ×2 (10:01→20:25)
[2019-08-28 11:55] LABS: CHLORIDE 107 mEq/L (98-107)
[2019-08-28 12:03] LABS: PHOSPHORUS 2.7 mg/dL (2.5-4.9)
[2019-08-28 12:29] VITALS: BP 119/68
[2019-08-28] MEDS: POTASSIUM CHLORIDE 20MEQ TABLET SR PO SCH (13:49)
[2019-08-28] MEDS ORDERED: MAGNESIUM 2 G PREMIX 50 ML IV SCH (15:00)
[2019-08-28 16:19] VITALS: BP 94/51
[2019-08-28] MEDS: CEFTRIAXONE 1 G PREMIX 50 ML IV SCH (20:26)
[2019-08-28 20:54] VITALS: BP 111/69
[2019-08-29] VITALS: BP 101/63
[2019-08-29] MEDS: LACTULOSE 20G/30ML UDC PO SCH ×7 (00:57→21:00)
[2019-08-29 04:00] VITALS: BP 125/73
[2019-08-29 08:00] VITALS: BP 91/53
[2019-08-29] MEDS: POTASSIUM CHLORIDE 20MEQ TABLET SR PO SCH (09:32)
[2019-08-29] MEDS: RIFAXIMIN 550 MG TABLET PO SCH ×2 (09:32→21:00)
[2019-08-29] MEDS: MAGNESIUM OXIDE 400MG TABLET PO SCH (09:32)
[2019-08-29] MEDS: FAMOTIDINE 20MG TABLET PO SCH (10:45)
[2019-08-29 12:00] VITALS: BP 118/62
[2019-08-29 16:00] VITALS: BP 130/69
[2019-08-29] MEDS ORDERED: IBUPROFEN 200MG TABLET PO PRN (20:45)
[2019-08-30] MEDS: LACTULOSE 20G/30ML UDC PO SCH ×7 (00:50→20:00)
[2019-08-30 04:00] VITALS: BP 98/53
[2019-08-30] MEDS: RIFAXIMIN 550 MG TABLET PO SCH ×3 (08:40→21:00)
[2019-08-30] MEDS: FAMOTIDINE 20MG TABLET PO SCH ×2 (08:40→08:44)
[2019-08-30] MEDS: POTASSIUM CHLORIDE 20MEQ TABLET SR PO SCH ×2 (08:40→08:44)
[2019-08-30] MEDS: MAGNESIUM OXIDE 400MG TABLET PO SCH ×2 (08:40→08:44)
[2019-08-30 20:00] VITALS: BP 97/46
[2019-08-31] VITALS: BP 94/44
[2019-08-31 04:00] VITALS: BP 111/47
[2019-08-31] MEDS: LACTULOSE 20G/30ML UDC PO SCH ×6 (04:00→21:55)
[2019-08-31 06:43] LABS: CHLORIDE 107 mEq/L (98-107)
[2019-08-31 07:17] LABS: MEAN CORPUSCULAR HEMOGLOBIN 35.2 pg (28.0-32.0); MEAN CORPUSCULAR VOLUME 99.9 fL (80.0-94.0); MEAN PLATELET VOLUME 8.3 fl (7.4-10.4); RED CELL DISTRIBUTION WIDTH 15.2 % (11.6-14.6)
[2019-08-31 08:00] VITALS: BP 118/61
[2019-08-31 08:51] LABS: PLATELET 44 x1000/uL (130-400)
[2019-08-31] MEDS: FAMOTIDINE 20MG TABLET PO SCH (09:00)
[2019-08-31] MEDS: MAGNESIUM OXIDE 400MG TABLET PO SCH (09:00)
[2019-08-31] MEDS: POTASSIUM CHLORIDE 20MEQ TABLET SR PO SCH (09:00)
[2019-08-31] MEDS: RIFAXIMIN 550 MG TABLET PO SCH ×2 (09:00→21:55)
[2019-08-31 12:00] VITALS: BP 107/71
[2019-08-31 15:53] LABS: PLATELET ESTIMATE MARKEDLY DECREASED
[2019-08-31 16:00] VITALS: BP 104/61
[2019-08-31 20:00] VITALS: BP 102/73
[2019-09-01] VITALS: BP 106/72
[2019-09-01] MEDS: LACTULOSE 20G/30ML UDC PO SCH ×4 (00:15→12:00)
[2019-09-01 04:00] VITALS: BP 110/77
[2019-09-01 08:00] VITALS: BP 96/52
[2019-09-01] MEDS: FAMOTIDINE 20MG TABLET PO SCH (08:36)
[2019-09-01] MEDS: POTASSIUM CHLORIDE 20MEQ TABLET SR PO SCH (08:36)
[2019-09-01] MEDS: MAGNESIUM OXIDE 400MG TABLET PO SCH (08:36)
[2019-09-01] MEDS: RIFAXIMIN 550 MG TABLET PO SCH (08:36)
[2019-09-01 11:46] VITALS: BP 99/55
[2019-09-01 13:53] VITALS: BP 99/55
== END 2019-09-01 15:38 | disposition home or self-care (01) | DRG 279 ==
LOC: ER 00:53 → 6WST 04:58 → EDBEDREQTM 05:01 → EDBEDREQ 05:01 → ENRESERV 14:34 → 6WST 17:28 → 6EST 08-28 18:11
PROVIDERS: ADMIT Internal Medicine; ATTEND Internal Medicine
DX: K72.00 Acute and subacute hepatic failure without coma (principal); E44.0 Moderate protein-calorie malnutrition; D69.6 Thrombocytopenia, unspecified; F03.90 Unspecified dementia, unspecified severity, without behavioral disturbance, psychotic disturbance, mood disturbance, and anxiety; K74.60 Unspecified cirrhosis of liver; N39.0 Urinary tract infection, site not specified; D64.9 Anemia, unspecified; K59.00 Constipation, unspecified; Z88.0 Allergy status to penicillin; Z68.1 Body mass index [BMI] 19.9 or less, adult
CPT/HCPCS: 36415; 36600; 71045; 73030; 73060; 74176; 80048; 80305; 80307; 80320; 80329; 81003; 82140; 82375; 82607; 82746; 82805; 83036; 83605; 83735; 84100; 84484; 93005; 93970; 96374; 97110; 97162; 97166; 97530; 97535; 99285; C9113; J0696; J1885; J2405; J3475; J3490; J7030; J7040; G0480

== ENCOUNTER 2019-10-10 09:22 | Inpatient (IN) | payer MEDICAID, OTHER ==
[~2019-10-10] VITALS: Ht 182.9 cm; Wt 99.8 kg
[2019-10-10 10:30] LABS: HEMATOCRIT. 37.5 % (42.0-52.0); MEAN CORPUSCULAR HEMOGLOBIN 34.2 pg (28.0-32.0); MEAN PLATELET VOLUME 9.6 fl (7.4-10.4); PLATELET 80 x1000/uL (130-400); RED BLOOD CELL COUNT 3.79 mill/uL (4.7-6.1); RED CELL DISTRIBUTION WIDTH 18.1 % (11.6-14.6)
[2019-10-10 10:33] LABS: CHLORIDE 107 mEq/L (98-107)
[2019-10-10 10:35] LABS: CLARITY URINE CLEAR (CLEAR); COLOR URINE YELLOW (YELLOW); KETONES URINE NEGATIVE (NEGATIVE); LEUKOCYTE ESTERASE URINE 1+ (NEGATIVE); NITRITE URINE NEGATIVE (NEGATIVE); OCCULT BLOOD URINE NEGATIVE (NEGATIVE); PH URINE >=9.0 (4.5-8.0); PROTEIN URINE NEGATIVE (NEGATIVE); SPECIFIC GRAVITY URINE 1.011 (1.005-1.030)
[2019-10-10 10:35] LABS: INR 1.4; PROTHROMBIN TIME 14.5 sec (9.6-11.0)
[2019-10-10 10:38] LABS: ETHANOL BLOOD < 10 mg/dL
[2019-10-10 10:53] LABS: *AMPHETAMINES SCREEN URINE NEGATIVE (NEGATIVE); *BARBITURATES SCREEN URINE NEGATIVE (NEGATIVE); *COCAINE SCREEN URINE NEGATIVE (NEGATIVE)
[2019-10-10 10:54] LABS: *BENZODIAZEPINES SCREEN URINE NEGATIVE (NEGATIVE); CANNABINOID URINE SCREEN NEGATIVE (NEGATIVE); METHADONE URINE SCREEN NEGATIVE (NEGATIVE); OPIATES URINE SCREEN NEGATIVE (NEGATIVE); PHENCYCLIDINE URINE SCREEN NEGATIVE (NEGATIVE)
[2019-10-10 11:10] LABS: PLATELET ESTIMATE DECREAS
[2019-10-10] MEDS ORDERED: LEVOFLOXACIN 500MG PREMIX 100 ML IV ONE (11:45)
[2019-10-10] MEDS ORDERED: LORAZEPAM 2MG/ML CPJ IV PRN (13:15)
[2019-10-10] MEDS ORDERED: HYDRALAZINE 20MG/ML VIAL IV PRN (13:15)
[2019-10-10] MEDS ORDERED: DIPHENHYDRAMINE 50MG/ML VIAL IV PRN (13:15)
[2019-10-10] MEDS ORDERED: DOCUSATE SODIUM 100MG CAPSULE PO PRN (13:15)
[2019-10-10] MEDS ORDERED: CLONIDINE 0.1MG TABLET PO PRN (13:15)
[2019-10-10] MEDS ORDERED: IPRATROPIUM/ALBUTEROL 0.5-3(2.5)MG/3ML NEB HHN PRN (13:15)
[2019-10-10] MEDS ORDERED: GUAIFENESIN 200MG/10ML SUGAR FREE UDC PO PRN (13:15)
[2019-10-10] MEDS ORDERED: ACETAMINOPHEN 325MG TABLET PO PRN (13:15)
[2019-10-10] MEDS ORDERED: MAGNESIUM/ALUMINUM HYDROXIDE/SIMETHICONE 30ML UDC PO PRN (13:15)
[2019-10-10] MEDS ORDERED: ONDANSETRON HCL 4MG/2ML INJ IV PRN (13:15)
[2019-10-10 16:21] VITALS: BP 121/69
[2019-10-10] MEDS ORDERED: HYDROCODONE/ACETAMINOPHEN 10/325MG TABLET PO PRN (16:28)
[2019-10-10] MEDS ORDERED: MORPHINE SULFATE 2 MG/ML CPJ (NOT FOR IM USE) IV PRN (16:29)
[2019-10-10] MEDS ORDERED: DEXT 5%/0.45% NACL 1000ML 1,000 ML IV SCH (16:30)
[2019-10-10] MEDS ORDERED: NA PHOS,M-B/NA PHOS,DI-BA ENEMA 118ML PR PRN (17:00)
[2019-10-10 17:20] LABS: CREATINE KINASE 52 IU/L (39-308)
[2019-10-10 17:22] LABS: CREATINE KINASE MB FRACTION < 1.0 ng/mL (0.5-3.6)
[2019-10-10] MEDS ORDERED: ENOXAPARIN 40MG/0.4ML SYR SUBCUT SCH (17:30)
[2019-10-10] MEDS ORDERED: LACTULOSE 20G/30ML UDC PO SCH (18:00)
[2019-10-10 19:45] VITALS: BP 121/69
[2019-10-10] MEDS ORDERED: SODIUM CHLORIDE 0.9% INJ 3ML FLUSH IVF SCH (22:00)
[2019-10-11] MEDS ORDERED: LEVOFLOXACIN 500MG PREMIX 100 ML IV SCH (12:00)
== END 2019-10-10 20:17 | DRG 279 ==
LOC: ER 09:22 → EDBEDREQTM 11:55 → EDBEDREQ 12:32 → 7WST 12:33 → EDBEDREQTM 12:59 → ENRESERV 13:45
PROVIDERS: ADMIT Internal Medicine; ATTEND Internal Medicine
DX: K72.00 Acute and subacute hepatic failure without coma (principal); E46 Unspecified protein-calorie malnutrition; K76.6 Portal hypertension; F03.90 Unspecified dementia, unspecified severity, without behavioral disturbance, psychotic disturbance, mood disturbance, and anxiety; D64.9 Anemia, unspecified; K59.00 Constipation, unspecified; K43.9 Ventral hernia without obstruction or gangrene; K74.60 Unspecified cirrhosis of liver; Z88.0 Allergy status to penicillin; Z68.29 Body mass index [BMI] 29.0-29.9, adult
CPT/HCPCS: 36415; 71045; 74176; 80305; 80320; 81003; 82140; 82550; 82553; 83880; 84484; 87077; 87186; 92610; 93005; 93970; 99285; J1956; G0480

== ENCOUNTER 2021-01-18 09:07 | Emergency (ER) | payer OTHER ==
[~2021-01-18] VITALS: Ht 175.3 cm; Wt 100.0 kg
[2021-01-18 09:45] LABS: HEMATOCRIT. 29.2 % (42.0-52.0); HEMOGLOBIN. 9.9 g/dL (14.0-18.0); MEAN CORPUSCULAR HEMOGLOBIN 36.3 pg (28.0-32.0); MEAN CORPUSCULAR VOLUME 107.2 fL (80.0-94.0); MEAN PLATELET VOLUME 8.4 fl (7.4-10.4); PLATELET 56 x1000/uL (130-400); RED BLOOD CELL COUNT 2.72 mill/uL (4.7-6.1); RED CELL DISTRIBUTION WIDTH 17.5 % (11.6-14.6)
[2021-01-18 09:51] LABS: CHLORIDE 106 mEq/L (98-107)
[2021-01-18] MEDS ORDERED: MORPHINE SULFATE 4 MG/ML CPJ (NOT FOR IM USE) IV NR (10:45)
[2021-01-18 12:25] LABS: TOTAL IRON BINDING CAPACITY 199 ug/dL (250-450)
[2021-01-18 12:58] LABS: PLATELET ESTIMATE DECREASED
[2021-01-18 13:30] VITALS: BP 126/64
== END 2021-01-18 13:36 | disposition short-term general hospital (02) ==
LOC: ER 09:07 → CANBEDREQ 13:53
DX: D64.9 Anemia, unspecified (principal); D69.6 Thrombocytopenia, unspecified; K92.2 Gastrointestinal hemorrhage, unspecified; R18.8 Other ascites; K52.9 Noninfective gastroenteritis and colitis, unspecified; K72.90 Hepatic failure, unspecified without coma; F03.90 Unspecified dementia, unspecified severity, without behavioral disturbance, psychotic disturbance, mood disturbance, and anxiety; Z87.891 Personal history of nicotine dependence; Z88.0 Allergy status to penicillin
CPT/HCPCS: 36415; 74176; 80053; 82270; 83540; 83550; 83690; 85025; 85610; 86850; 86900; 86901; 93005; 96374; 99285; J2270